=== PATIENT | female | born 1955 | race Caucasian/White ===

== ENCOUNTER 2020-11-26 09:16 | Emergency (ER) | payer MEDICARE, OTHER ==
--- NOTE | 2020-11-26 09:39 | EDM.PDOC ---
ED HPI GENERAL MEDICAL PROBLEM - General Chief Complaint: Respiratory Problem Stated Complaint: HARD TIME BREATHING?/ Time Seen by Provider: 11/26/20 09:39 - History of Present Illness INITIAL COMMENTS - FREE TEXT/NARRATIVE: Soraida, 65-year-old female, presents emergency department today with what she feels "my bronchials are closing". She had been tested through [facility] last week with a negative COVID-19 finding. She states that she is experiencing pharyngitis with some respiratory issues which may be worsened with the recent environmental smoke concerns in the area. Has had low-grade fever and speaks of a week to 10 days of ongoing upper respiratory viral type symptoms. [facility] negative Covid test past 48 hours. Onset: Gradual Duration: Day(s): Chest Pain Score (Numeric/FACES): 4 - Related Data Allergies Allergy/AdvReac Type Severity Reaction Status Date / Time fentanyl Allergy Nausea and Verified 11/26/20 09:54 Vomiting midazolam HCl [From Versed] Allergy Bradycardia Verified 11/26/20 09:54 Home Meds: Home Meds Cholecalciferol (Vitamin D3) [Vitamin D3] 2,000 unit PO DAILY 05/12/20 [History] Levomefolic Acid, L5 1 cap PO DAILY 05/30/20 [History] Past Medical History - Past Health History Medical/Surgical History: Denies Medical/Surgical History Cardiovascular History: Reports: None Respiratory History: Reports: None Gastrointestinal History: Reports: GERD Other [employer] History: tubal ligation - Past Surgical History Musculoskeletal Surgical History: Reports: Other (See Below) Other Musculoskeletal Surgeries/Procedures:: bunionectomy; toe fusion; Social & Family History - Family History Family Medical History: No Pertinent Family History - Tobacco Use Tobacco Use Within Last Twelve Months: No ED ROS GENERAL - Review of Systems Review Of Systems: Comprehensive ROS is negative, except as noted in HPI. ED EXAM, GENERAL - Physical Exam Exam: See Below Free Text/Narrative:: Alert, oriented in no acute distress. HEENT is negative discharge or deformity. There is no involvement the auditory canals with a mild fullness of the left tympanic membrane. There is no tenderness to the sinuses. Nasal passages are somewhat inflamed. Oropharynx is erythematous with tenderness to palpation with mild anterior lymph node involvement of the neck. Neck is otherwise soft supple with no rigidity. Thorax is clear throughout with exhalation inducing a cough at times. Cardiac is regular no murmur. No flank pain no abdominal tenderness. Radial pulse correlates with apical heart rate and no integument abnormalities are seen. Course - Vital Signs Last Recorded V/S: Last Vital Signs Temp 98.4 F 11/26/20 09:40 Pulse 70 11/26/20 09:40 Resp 18 11/26/20 09:40 BP 127/73 11/26/20 09:40 Pulse Ox 94 L 11/26/20 09:40 - Orders/Labs/Meds Labs: Laboratory Tests 11/26/20 11/26/20 Range/Units 09:55 09:55 WBC 4.54 L (5.00-10.00) 10^3/uL RBC 4.81 (3.80-5.50) 10^6/uL Hgb 14.1 (12.0-16.0) g/dL Hct 42.9 (37.0-47.0) % MCV 89.2 (82.0-92.0) fL MCH 29.3 (27.0-31.0) pg MCHC 32.9 (32.0-36.0) g/dL RDW 13.5 (11.5-14.5) % Plt Count 175 (150-400) 10^3/uL MPV 10.9 H (7.4-10.4) fL Immature Gran % (Auto) 0.2 (0.0-5.0) % Neut % (Auto) 64.3 (50.0-70.0) % Lymph % (Auto) 22.2 (20.0-40.0) % Bullock % (Auto) 10.8 H (2.0-8.0) % Eos % (Auto) 1.8 (1.0-3.0) % Baso % (Auto) 0.7 (0.0-1.0) % Neut # (Auto) 2.92 (2.50-7.00) 10^3/uL Lymph # (Auto) 1.01 (1.00-4.00) 10^3/uL Bullock # (Auto) 0.49 (0.10-0.80) 10^3/uL Eos # (Auto) 0.08 L (0.10-0.30) 10^3/uL Baso # (Auto) 0.03 (0.00-0.10) 10^3/uL Immature Gran # (Auto) 0.01 (0.00-0.50) 10^3/uL Sodium 140 (136-145) mmol/L Potassium 4.2 (3.5-5.1) mmol/L Chloride 103 (98-107) mmol/L Carbon Dioxide 27.8 (21.0-32.0) mmol/L Anion Gap 13.4 (5-15) mmol/L BUN 12 (7-18) mg/dL Creatinine 0.72 (0.51-1.17) mg/dL Est Cr Clr Drug Dosing 72.92 mL/min Estimated GFR (MDRD) > 60 mL/min Glucose 96 (70-140) mg/dL Calcium 8.9 (8.7-10.3) mg/dL Total Bilirubin 0.5 (0.2-1.0) mg/dL AST 20 (15-37) U/L ALT 20 (14-63) U/L Alkaline Phosphatase 82 (46-116) U/L Total Protein 7.2 (6.4-8.2) g/dL Albumin 3.74 (3.40-5.00) g/dL Meds: Medications Discontinued Medications Generic Name Dose Route Start Last Admin Trade Name Freq PRN Reason Stop Dose Admin Penicillin G Benzathine 1.2 millunits 11/26/20 10:38 11/26/20 11:04 Penicillin G Benzathine 1,200,000 Units/2 Ml Syringe IM 11/26/20 10:39 1.2 millunits ONETIME ONE Administration Departure - Departure Time of Disposition: 10:53 Disposition: Home, Self-Care 01 Condition: Good Clinical Impression: Acute streptococcal pharyngitis, Viral upper respiratory illness - Discharge Information *PRESCRIPTION DRUG MONITORING PROGRAM REVIEWED*: Not Applicable *COPY OF PRESCRIPTION DRUG MONITORING REPORT IN PATIENT NIMCO: Not Applicable Instructions: Strep Throat, Adult, [id number] Referrals: Carmen Campbell NP [Primary Care Provider] - Forms: ED Department Discharge Additional Instructions: You have been given IM injection that will treat your strep infection. You may take Tylenol or ibuprofen for discomfort as well as saltwater gargles. You are considered contagious for the next 24 hours after the injection is placed. You should use a new toothbrush and any oral appliances after 24-hour period of treatment. Continue all your medications as directed and follow-up for recheck as needed. Continue Covid safety practices with good hygiene Sepsis Event Note (ED) - Focused Exam Vital Signs: Vital Signs Temp Pulse Resp BP Pulse Ox 11/26/20 09:40 98.4 F 70 18 127/73 94 L - Problem List & Annotations (1) Acute streptococcal pharyngitis SNOMED Code(s): 06849411, 109463049 Code(s): J02.0 - STREPTOCOCCAL PHARYNGITIS Status: Acute Priority: High Current Visit: Yes (2) Viral upper respiratory illness SNOMED Code(s): 120372708 Code(s): J06.9 - ACUTE UPPER RESPIRATORY INFECTION, UNSPECIFIED Status: Acute Priority: High Current Visit: Yes - Problem List Review Problem List Initiated/Reviewed/Updated: Yes - Assessment/Plan Plan: You have been given IM injection that will treat your strep infection. You may take Tylenol or ibuprofen for discomfort as well as saltwater gargles. You are considered contagious for the next 24 hours after the injection is placed. You should use a new toothbrush and any oral appliances after 24-hour period of treatment. Continue all your medications as directed and follow-up for recheck as needed. Continue Covid safety practices with good hygiene.
[2020-11-26 09:52] VITALS: BP 127/73; PULSE 70
--- NOTE | 2020-11-26 10:02 | CR ---
[id number] RAD/RAD Chest PA And Lateral EXAM: RAD Chest PA And Lateral INDICATION: COUGH, "BRONCHIALS ARE CLOSING". COMPARISON: None. DISCUSSION: Cardiomediastinal silhouette is normal in size and contour. No infiltrate, effusion, pneumothorax, or edema. Pulmonary hyperinflation. IMPRESSION: No acute cardiopulmonary abnormality. Nitin Evans DO 11/26/20 1001 Thank you for allowing us to participate in the care of your patient.
[2020-11-26 10:35] LABS: ANION GAP 13.4 mmol/L (5-15); CHLORIDE,CL 103 mmol/L (98-107); SODIUM,NA 140 mmol/L (136-145)
[2020-11-26] MEDS ORDERED: Penicillin G Benzathine 1,200,000 Units/2 ML Syringe IM ONE (10:38)
== END 2020-11-26 11:20 | disposition home or self-care (01) ==
LOC: KA.ED 09:16
DX: J02.0 Streptococcal pharyngitis (principal); Z88.4 Allergy status to anesthetic agent; Z88.5 Allergy status to narcotic agent
CPT/HCPCS: 36415; 71046; 80053; 85025; 87430; 96372; 99283; 99283-25; J0561